=== PATIENT | female | born 1940 | race Caucasian/White ===

== ENCOUNTER 2017-02-16 11:00 | Inpatient (IN) | payer MEDICARE, OTHER ==
[~2017-02-16] VITALS: Ht 160 cm; Wt 89.8 kg
--- NOTE | ~2017-02-16 | OR ---
PATIENT'S NAME: JANIYA ESCALERA [facility] AGE: 76 Y [address] ROOM: [place] [address] LOCATION: [facility] ADMIT DATE: 03/02/2017 OR/Procedure Report DISCHARGE DATE: FAMILY PHYSICIAN: Padmini Desouza MD ATTENDING PHYSICIAN: PATRICK FARLEY SURGEON: Patrick Farley MD GEOPHYSICAL SUPPORT SPECIALIST: Sha Bruno CST/SIGIFREDO and Patrick Cline. DATE OF PROCEDURE: 03/02/2017 PRE-OP DIAGNOSIS: Degenerative joint disease left knee. POST-OP DIAGNOSIS: Degenerative joint disease left knee. OPERATION: Left total knee arthroplasty with computer navigation. ANESTHESIA: Spinal anesthesia plus adductor canal block plus periarticular local anesthesia (ropivacaine with epinephrine and Toradol). ESTIMATED BLOOD LOSS: Less than 10 mL. DRAIN: None. SPECIMEN: None. COMPLICATIONS: None. IMPLANT SYSTEM: Valdez Triathlon Size 4 left posterior stabilized femoral component Size 3 Mcintire Modular tibial base plate A 9-mm posterior stabilized size 3, X3 tibial polyethylene insert A 32-mm oval X3 patellar component (triple pegged). INDICATIONS FOR SURGERY: Ms. Janiya Escalera is a 76-year-old female, who presents with advanced left knee degenerative joint disease and associated severely compromised activities of daily living. The patient has decided to proceed with knee replacement after having been thoroughly counseled regarding the associated risks, benefits, and limitations. We have specifically reviewed the risks and implications of infection, deep venous thrombosis, pulmonary embolism, mortality, neurovascular complications, blood transfusion (and associated potential for disease transmission or transfusion reaction), stiffness, instability, mechanical deterioration of the components (due to wear and or loosening), and the potential need for revision. We have also emphasized the importance of active involvement and compliance with post- operative physical therapy as a means of optimizing range of motion and PATIENT'S NAME: ALAN ESCALERAOL Dexter [facility] AGE: 76 Y [address] ROOM: [place] [address] LOCATION: [facility] ADMIT DATE: 03/02/2017 OR/Procedure Report DISCHARGE DATE: FAMILY PHYSICIAN: Padmini Desouza MD ATTENDING PHYSICIAN: PATRICK FARLEY functional recovery. Informed consent has been granted. DESCRIPTION OF PROCEDURE: The patient was positioned supine after administration of anesthesia and prophylactic antibiotics. A well-padded pneumatic tourniquet was placed around the left proximal thigh, and the left lower extremity was prepped and draped with vigilant sterile technique. The patient's name as well as the intended operative side and procedure were confirmed with a verbal time-out involving myself, the circulating nurse, the scrub nurse, and the anesthesiologist. Examination under anesthesia demonstrated no active skin lesions or masses. There was a moderate effusion. There was no erythema. There was no abnormal warmth. Range of motion under anesthesia was from full extension to 125 degrees of flexion. There was no ligamentous insufficiency. The left lower extremity was elevated and exsanguinated with an Esmarch wrap, and the pneumatic tourniquet was inflated to 300mmHg. The knee was approached through a longitudinal midline incision. A medial parapatellar arthrotomy was performed and the patella was everted. Examination of the joint space demonstrated a moderate amount of benign-appearing translucent synovial fluid. There was a moderate-sized osteophyte at the intercondylar notch. Cruciate ligaments were intact. There were no loose bodies. There was generalized, mild, non-proliferative synovitis. There was full-thickness loss of articular cartilage throughout the medial femoral condyle and throughout the anteromedial 70% of the medial tibial plateau. There were large osteophytes at the medial femoral condyle, medial tibial plateau, superomedial aspect of the trochlea, and superolateral margin of the femoral trochlea. There were moderate-sized osteophytes at the superior pole of the patella, as well as the lateral margin of the femoral trochlea. There was a small osteophyte at the inferior margin of the patella and lateral tibial plateau. There were moderate grade 3 degenerative changes extending across the equator of the patella. There was a 1.5-cm diameter region of full-thickness articular cartilage loss at the distal aspect of the central femoral trochlea. There were global grade 2 degenerative changes at the lateral femoral condyle. There were mild grade 3 degenerative changes involving a 1-cm diameter region at the medial aspect of the lateral tibial plateau. The lateral meniscus was normal. There was moderate inner perimeter tearing of the truncated remnant of the medial meniscus. Remnants of the menisci and cruciate ligaments were excised. The TRIA Beauty navigation femoral tracker was pinned in place at the distal aspect of the femoral trochlea. Absence of motion between the femur and the tracking device was confirmed manually and visually. Femoral osseous landmarks were obtained in order to calibrate the computer navigation system. Landmarks PATIENT'S NAME: JANIYA ESCALERA [facility] AGE: 76 Y [address] ROOM: [id number] [place], [place] [id number] LOCATION: [facility] ADMIT DATE: 03/02/2017 OR/Procedure Report DISCHARGE DATE: FAMILY PHYSICIAN: Padmini Desouza MD ATTENDING PHYSICIAN: PATRICK FARLEY included the center of rotation of the ipsilateral hip, the center-point of the distal femur, the femoral AP axis, 57 points on the medial femoral condyle articular surface, and 57 points on the lateral femoral condyle articular surface. The Cont[employer] computer navigation system was subsequently utilized to position the distal femoral resection block such that the distal femoral resection was performed perfectly perpendicular to the femoral mechanical axis. The distal femoral resection was performed with a Floodlight oscillating saw. The Cont[employer] computer navigation tibial tracker was pinned in place at the anterior aspect of the tibial plateau. Absence of motion between the tibia and the tracking device was confirmed manually and visually. Tibial osseous landmarks were obtained in order to calibrate the computer navigation system. Landmarks included the center-point of the tibial plateau, the AP tibial axis, 57 points on the medial tibial plateau articular surface, 57 points on the lateral tibial plateau articular surface, the medial malleolus, and the lateral malleolus. The Cont[employer] computer navigation system was subsequently utilized to position the proximal tibial resection block such that the proximal tibial resection was performed perfectly perpendicular to the tibial mechanical axis. The proximal tibial resection was performed with a Fuze Precision oscillating saw. Perpendicularity of the tibial resection with respect to the tibial shaft axis was reconfirmed by inserting a spacer-block attached to an extramedullary guide funmi. External rotation of the anterior and posterior femoral resections was set parallel to the epicondylar axis and carefully adjusted in order to create a rectangular flexion gap. The box resection was performed with a reciprocating saw. Anterior and posterior chamfer resections were performed with the oscillating saw. Posterior condyle osteophytes were excised with an osteotome. All other osteophytes were excised with a rongeur. Resection of all remnants of the menisci was reconfirmed. Flexion and extension gaps were confirmed to be symmetric and well balanced with a spacer-block technique. The patella resection was performed with an oscillating saw such that the composite thickness of the reconstructed patella was equivalent to the thickness of the tuolumne patella. Patella tracking was confirmed to be optimal, and there was no need for a lateral retinacular release. All trial components were removed and all prepared osseous surfaces were thoroughly irrigated with pulsatile saline lavage and dried prior to cementing all three components in a single stage using Valdez Simplex cement containing pre-mixed tobramycin. All extruded excess cement was removed. The entire joint space was thoroughly inspected and thoroughly irrigated with bacteriostatic pulsatile saline lavage to assure that there was no residual debris of any sort. PATIENT'S NAME: JANIYA ESCALERA [facility] AGE: 76 Y [address] ROOM: [address] [address] LOCATION: [facility] ADMIT DATE: 03/02/2017 OR/Procedure Report DISCHARGE DATE: FAMILY PHYSICIAN: Padmini Desouza MD ATTENDING PHYSICIAN: PATRICK FARLEY Final range of motion was from full extension (with no passive hyperextension) degrees of extension to 130 degrees of flexion. Patella tracking was reconfirmed to be optimal. There was very good anteroposterior stability at 90 degrees of flexion. There was less than 1 mm of medial lift-off to valgus stress in full extension. There was less than 1 mm of lateral lift-off to varus stress in full extension. The arthrotomy was closed with multiple simple and [id number]-up-mxret interrupted #1 Vicryl. Subcutaneous tissues were thoroughly re-irrigated with bacteriostatic pulsatile saline lavage. Subcutaneous tissues were re- approximated with simple buried interrupted #0 Vicryl sutures. The skin was closed with simple buried interrupted 2-0 Vicryl sutures followed by surgical corey. The dressing consisted of Xeroform gauze, 4x4 gauze, ABD pads and two 6-inch Ravi Wraps. There were no intra-operative complications. MD KARI MARKS/jhony /[id number] d: 03/02/172100 t: 03/21/172139, OPERATIVE SUMMARY
--- NOTE | ~2017-02-16 | DS ---
PATIENT'S NAME: AALN FLETCHEROL Dexter [facility] AGE: 76 Y [address] ROOM: [place] [address] LOCATION: [facility] ADMIT DATE: 03/02/2017 Discharge Summary DISCHARGE DATE: 03/04/2017 FAMILY PHYSICIAN: Padmini Desouza MD ATTENDING PHYSICIAN: Patrick Farley PRIMARY DIAGNOSIS: Degenerative joint disease of the left knee. SECONDARY DIAGNOSES: 1. History of bowel obstruction. 2. Osteopenia. 3. Hypothyroidism. 4. Hyperlipidemia. PROCEDURE PERFORMED: Left total knee arthroplasty with computer navigation. HISTORY: The patient is a 76-year-old female, who presents with advanced left knee degenerative joint disease and associated severely compromised activities of daily living. The patient has decided to proceed with total knee arthroplasty after having been thoroughly counseled regarding the risks, benefits, limitations, and alternatives. Please refer to the outpatient clinic notes and admission history and physical for this patient. HOSPITAL COURSE: The patient underwent a left total knee arthroplasty on 03/02/2017 without complications. Spinal anesthesia plus adductor canal block plus periarticular local anesthesia was utilized. The patient received 24 hours of perioperative prophylactic antibiotics and remained hemodynamically stable, neurovascularly intact throughout the entire hospital course. The postoperative prophylactic deep venous thrombosis prophylaxis consisted of Xarelto 10 mg, early mobilization and pneumatic compression devices. Daily physical therapy for gait training, transfer training, range of motion, and quadriceps isometric exercises were received. The patient progressed well in physical therapy. On the date of discharge, 03/04/2017, the incision at the knee was healing well and showed no signs of infection. DISPOSITION: Home. DISCHARGE ACTIVITY: The patient is to bear weight as tolerated with range of motion and quadriceps isometric exercises as instructed. The operative extremity is to be elevated at least 90% of the day. There is to be sterile 4x4 gauze dressings to the incision daily. Dr. Farley is to be notified immediately if there is any increased pain, fevers, chills, erythema, or drainage. DISCHARGE MEDICATIONS: Include, PATIENT'S NAME: TAMARA FLETCHER [facility] AGE: 76 Y [address] ROOM: [place] [address] LOCATION: [facility] ADMIT DATE: 03/02/2017 Discharge Summary DISCHARGE DATE: 03/04/2017 FAMILY PHYSICIAN: Padmini Desouza MD ATTENDING PHYSICIAN: Patrick Farley 1. Xarelto 10 mg, take 1 tablet p.o. daily for DVT prevention. 2. Valium 5 mg, take 1/2 tablet to 1 tablet every 6 hours as needed for muscle spasms. 3. Dilaudid 2 mg, take 1 to 2 tablets p.o. every 4 hours as needed for pain. FOLLOWUP: Followup date is scheduled for 03/09/2017 for initial postoperative evaluation and x-rays at that time. EMERITA DAVIS FOR PATRICK FARLEY MD TLB/modl /[id number] d: 03/18/170 t: 03/23/17 1540, DISCHARGE SUMMARY
[~2017-02-16 11:00] MED LIST: ALDACTONE50 MG PO; ALEVE220 MG PO; CALCIUM 600 +1 EAC6 PO; CLOBETASOL PROP60 G2 MM; LEVOTHROID (S112 MCG PO; MULTI VITAMIN1 EACH PO; OMEPRAZOLE20 M1 PO; PHENTERMINE H37.5 M1 PO; RESTORE TEARS30 ML OPHTH; VISION VITAMIN1 EACH PO; VITAMIN D-32000 UNI1 PO; ZANAFLEX4 MG PO; ZOCOR20 MG PO
--- NOTE | 2017-03-02 17:03 | NUR ---
Significant Event: Patient received from PACU at 1525. First hourly vital signs at 1910. Dressing dry and intact. Numbness to legs from spinal. No voids. Follow up:
--- NOTE | 2017-03-02 18:45 | NUR ---
I reviewed and approved of charting by SN Javed
--- NOTE | 2017-03-03 04:46 | NUR ---
Shift Summary: Patient can ambulate with one assist. Last Dilaudid at 2114. 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 Hypotensive. Voiding large amount. Tolerating regular diet well. Wants to go home this afternoon.
--- NOTE | 2017-03-03 16:20 | NUR ---
D: Noted small, scattered bruising to right upper arm after tape removed.
--- NOTE | 2017-03-03 16:46 | NUR ---
Significant Event: Patient alert and oriented X3. CSM within normal limits. Up with 1A, walker, and gait belt. Resting in chair most of the day. Voiding without difficulty. Vital signs stable. Dilaudid for pain. Follow up:
--- NOTE | 2017-03-03 17:32 | NUR ---
I reviewed and approve of charting by Cintia Mukherjee, SN
--- NOTE | 2017-03-04 04:13 | NUR ---
Patient alert and oriented x3, very pleasant and cooperative, dressing clean dry and intact, ice in place to knee, VSS, csm with in normal limits, ambulates well stand by assist with walker, has rested well
[2017-03-04] MEDS ORDERED: TYLENOL EXTRA500 MG PO (14:36)
[2017-03-04] MEDS ORDERED: COLACE100 MG PO (14:37)
[2017-03-04] MEDS ORDERED: MIRALAX17 GM PO (14:40)
[2017-03-04] MEDS ORDERED: XARELTO10 MG PO (14:50)
[2017-03-04] MEDS ORDERED: VALIUM5 MG PO (14:51)
[2017-03-04] MEDS ORDERED: MILK OF MA400 MG/5 M PO (14:55)
[2017-03-04] MEDS ORDERED: DILAUDID 2MG(HYD2 MG PO (14:56)
--- NOTE | 2017-03-04 16:06 | NUR ---
Dismissal Note: Ambulates with SBA and walker. Dressing changed this am, corey intact. Ez wrap ice at all times. Voids without diffiuclty. Dilaudid 2mg last at 1530. Maribell education given with dismissal instructions, patient and family state understanding. IV d/cd. Patient dismissed to home per private vehicle with family.
== END 2017-03-04 15:45 | disposition disaster alternative care site (69) | DRG 470 ==
LOC: G3N 03-02 08:58
PROVIDERS: ADMIT Orthopaedic Surgery
PROC: 0SRD0J9 Replacement of Left Knee Joint with Synthetic Substitute, Cemented, Open Approach (ICD-10-PCS; principal; 2017-03-02)
DX: M17.12 Unilateral primary osteoarthritis, left knee (principal); E03.9 Hypothyroidism, unspecified; I95.81 Postprocedural hypotension; E78.5 Hyperlipidemia, unspecified; Z77.29 Contact with and (suspected) exposure to other hazardous substances; M85.80 Other specified disorders of bone density and structure, unspecified site; R91.8 Other nonspecific abnormal finding of lung field; Z90.49 Acquired absence of other specified parts of digestive tract; Z87.891 Personal history of nicotine dependence
CPT/HCPCS: C1713; C1776; J1100; J1885; J1956; J2001; J2250; J2795; J3370; J7030; J7040; J7120

== ENCOUNTER → 2017-02-18 | Outpatient (CLI) | payer MEDICARE ==
[~2017-02-18] MED LIST changes: +COLACE100 MG PO; +DILAUDID 2MG(HYD2 MG PO; +MILK OF MA400 MG/5 M PO; +MIRALAX17 GM PO; +TYLENOL EXTRA500 MG PO; +VALIUM5 MG PO; +XARELTO10 MG PO
== END | disposition disaster alternative care site (69) ==
LOC: GNJRC 10:20
DX: Z01.812 Encounter for preprocedural laboratory examination (principal); M17.12 Unilateral primary osteoarthritis, left knee